=== PATIENT | female | born 1995 | race African-American/Black ===

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

== ENCOUNTER 2018-07-11 11:59 | Emergency (ER) | payer SELFPAY ==
[2018-07-11 12:45] VITALS: BP 131/85
[2018-07-11] MEDS ORDERED: Ketorolac INJ* 30 MG/ML 1 ML VIAL IM ONE (13:52)
--- NOTE | 2018-07-11 13:53 | ED ---
Throat Pain/Nasal Congestion - HPI Summary HPI Summary: 23 year old female presents with dental pain past week. She states that her pain is getting worse. She states she is not able to function due to the pain. She denies any fevers. She states that her gums have been feeling swollen. She states the pain is in her bilateral lower wisdom teeth. She states she gets very sharp pain whenever exposed to temperature. She states the pain radiates up her jaw. - History of Current Complaint Chief Complaint: UCDentalProblem Time Seen by Provider: 07/11/18 13:42 - Allergies/Home Medications Allergies/Adverse Reactions: Allergies Allergy/AdvReac Type Severity Reaction Status Date / Time MS Penicillins [PCN] Allergy Severe Unknown Verified 12/18/16 08:04 Reaction Details Penicillins Allergy anaph Verified 07/11/18 12:46 PMH/Surg Hx/FS Hx/Imm Hx Endocrine/Hematology History: Denies: Hx Diabetes Cardiovascular History: Denies: Hx Hypertension Respiratory History: Reports: Hx Asthma Sensory History: Denies: Hx Legally Blind, Hx Deafness Opthamlomology History: Denies: Hx Legally Blind - Surgical History Surgery Procedure, Year, and Place: n/a Infectious Disease History: No Infectious Disease History: Denies: Traveled Outside the [place] in Last 30 Days - Family History Known Family History: Positive: Cardiac Disease, Hypertension, Diabetes, Other - Cancer - Social History Alcohol Use: None Substance Use Type: Reports: None Substance Use Comment - Amount & Last Used: 3-4 times a week Smoking Status (MU): Light Every Day Tobacco Smoker Review of Systems Negative: Fever Positive: Dental Pain Negative: Chest Pain Negative: Shortness Of Breath All Other Systems Reviewed And Are Negative: Yes Physical Exam Triage Information Reviewed: Yes Vital Signs On Initial Exam: Initial Vitals Temp Pulse Resp BP Pulse Ox 97.8 F 85 18 131/85 100 07/11/18 12:42 07/11/18 12:42 07/11/18 12:42 07/11/18 12:42 07/11/18 12:42 Vital Signs Reviewed: Yes Appearance: Positive: Pain Distress Skin: Positive: Warm, Dry Head/Face: Positive: Normal Head/Face Inspection Eyes: Positive: Normal, EOMI, HUGO, Conjunctiva Clear ENT: Positive: Pharynx normal, TMs normal Dental: Positive: Percussion Tenderness @ - 32, Gross Decay/Caries @ - 32 Neck: Positive: Supple, Nontender, No Lymphadenopathy Respiratory/Lung Sounds: Positive: Clear to Auscultation, Breath Sounds Present Cardiovascular: Positive: Normal, RRR Musculoskeletal: Positive: Normal Neurological: Positive: Normal Psychiatric: Positive: Normal Diagnostics - Vital Signs Vital Signs Temp Pulse Resp BP Pulse Ox 07/11/18 12:42 97.8 F 85 18 131/85 100 - Laboratory Lab Statement: Any lab studies that have been ordered have been reviewed, and results considered in the medical decision making process. EENT Course/Dx - Course Course Of Treatment: 23 year old female presents with dental pain past week. She states that her pain is getting worse. She states she is not able to function due to the pain. She denies any fevers. She states that her gums have been feeling swollen. She states the pain is in her bilateral lower wisdom teeth. She states she gets very sharp pain whenever exposed to temperature. She states the pain radiates up her jaw. On exam of pain into 31 and 17. Some erythema around. We'll treat with clindamycin. gave tramadol for extreme pain. Told to Establish care with dentist. can follow up with primary about blood pressure but likely due to pain Patient understands agrees with plan. - Differential Diagnoses Differential Diagnoses: Dental Abscess, Dental Caries, Fractured Tooth - Diagnoses Provider Diagnoses: Dental infection Discharge - Sign-Out/Discharge Documenting (check all that apply): Patient Departure All imaging exams completed and their final reports reviewed: No Studies - Discharge Plan Condition: Good Disposition: HOME Prescriptions: Clindamycin Cap(NF) [Clindamycin Cap 300 mg Cap(NF)] 300 mg PO TID #21 cap traMADol TAB* [Ultram*] 50 mg PO Q12H PRN #6 tab MDD 2 PRN Reason: Pain Patient Education Materials: Toothache (ED) Referrals: Estefanía Peterson MD [Primary Care Provider] - Additional Instructions: Take clindamycin three times a day for 7 days Take ibuprofen or tyenlol every 6 hours for pain as needed, use tramadol every 12 hours as needed for break through pain Avoid hard, crunchy food until seen by dentist Return to ED if develop fever, shortness of breath, pain with eye movement or swelling around eye Establish care with dentist as soon as possible - Billing Disposition and Condition Condition: GOOD Disposition: Home Images - Images Dental: 1 - pain
== END 2018-07-11 14:04 | disposition home or self-care (01) ==
LOC: UCEAST 11:59
DX: K04.7 Periapical abscess without sinus (principal); K02.9 Dental caries, unspecified; J45.909 Unspecified asthma, uncomplicated; Z88.0 Allergy status to penicillin; F17.200 Nicotine dependence, unspecified, uncomplicated
CPT/HCPCS: 96372; 99212; G0463; J1885

== ENCOUNTER 2018-08-12 21:00 | Emergency (ER) | payer MEDICAID ==
[2018-08-12 21:13] VITALS: BP 129/74
--- NOTE | 2018-08-12 21:59 | UC ---
UC General HPI - HPI Summary HPI Summary: 23-year-old woman comes in with a chief complaint of chest pain. Last evening just before going to bed she took a dose of clindamycin for a dental infection that she has. She laid down right away fell asleep. When she woke up she had lower chest pain that is burning in nature. When she first started trying to drink it gave her quite a bit of pain this morning. Since that time she's been able to eat and drink but it does cause more pain when she does do that. No vomiting. She is slightly tender if she pushes on her upper abdomen also. No fevers or chills no shortness of breath. - History of Current Complaint Chief Complaint: UCGI Stated Complaint: THROAT COMPLAINT Time Seen by Provider: 08/12/18 21:37 Hx Last Menstrual Period: 08/05/18 Pain Intensity: 3 - Allergy/Home Medications Allergies/Adverse Reactions: Allergies Allergy/AdvReac Type Severity Reaction Status Date / Time Penicillins Allergy anaph Verified 08/12/18 21:13 PMH/Surg Hx/FS Hx/Imm Hx Previously Healthy: Yes - Surgical History Surgical History: None Surgery Procedure, Year, and Place: n/a - Family History Known Family History: Positive: Cardiac Disease, Hypertension, Diabetes, Other - Cancer - Social History Alcohol Use: Occasionally Substance Use Type: Marijuana Substance Use Comment - Amount & Last Used: 3-4 times a week Smoking Status (MU): Former Smoker Review of Systems All Other Systems Reviewed And Are Negative: Yes Constitutional: Positive: Negative Skin: Positive: Negative Eyes: Positive: Negative ENT: Positive: Negative Respiratory: Positive: Negative Cardiovascular: Positive: Chest Pain Gastrointestinal: Positive: Abdominal Pain Motor: Positive: Negative Neurovascular: Positive: Negative Musculoskeletal: Positive: Negative Neurological: Positive: Negative Psychological: Positive: Negative Is Patient Immunocompromised?: No Physical Exam Triage Information Reviewed: Yes Appearance: Well-Appearing, No Pain Distress, Well-Nourished Vital Signs: Initial Vital Signs Temp 99.2 F 08/12/18 21:08 Pulse 69 08/12/18 21:08 Resp 18 08/12/18 21:08 BP 129/74 08/12/18 21:08 Pulse Ox 100 08/12/18 21:08 Vital Signs Reviewed: Yes Eye Exam: Normal Eyes: Positive: Conjunctiva Clear Neck: Positive: Supple Respiratory: Positive: Lungs clear, Normal breath sounds, No respiratory distress Cardiovascular: Positive: RRR Abdomen Description: Positive: Soft, Other: - MILD EPIGASTRIC TENDERNESS TO PALPATION Bowel Sounds: Positive: Present Musculoskeletal Exam: Normal Musculoskeletal: Positive: Strength Intact, ROM Intact Neurological Exam: Normal Neurological: Positive: Alert, Muscle Tone Normal Psychological Exam: Normal Psychological: Positive: Age Appropriate Behavior Skin Exam: Normal Course/Dx - Course Course Of Treatment: Hx and exam consistent with esophagitis from the clindamycin. Pt no SOB, no fever. Has been able to eat and drink. Trt with OTC antacids and RX omeprazole. If worse go to ED. F/U [facility] otherwise. - Diagnoses Provider Diagnosis: Esophagitis Discharge - Sign-Out/Discharge Documenting (check all that apply): Patient Departure All imaging exams completed and their final reports reviewed: No Studies - Discharge Plan Condition: Stable Disposition: HOME Prescriptions: Omeprazole 20 mg PO BID #30 capsule. Patient Education Materials: Esophagitis (ED) Referrals: [facility] [Outside] Additional Instructions: FOLLOW UP WITH [facility] IF NOT COMPLETELY IMPROVED. TAKE TUMS AND MAALOX DIRECTED NEEDED IF HELPFUL. GO TO THE EMERGENCY DEPARTMENT IF YOUR CONDITION WORSENS; PAIN, SHORTNESS OF BREATH, YOU ARE UNABLE TO SWALLOW OR ANY QUESTIONS OR CONCERNS. - Billing Disposition and Condition Condition: STABLE Disposition: Home
[2018-08-12] MEDS: Pantoprazole TAB * 40 MG TAB PO ONE (22:07)
[2018-08-12] MEDS: Al Hydrox/Mg Hydrox/Simet LIQ* 30 ML UDC PO ONE (22:07)
== END 2018-08-12 22:11 | disposition home or self-care (01) ==
LOC: UCEAST 21:00
DX: K20.9 Esophagitis, unspecified (principal); Z88.0 Allergy status to penicillin; Z79.891 Long term (current) use of opiate analgesic
CPT/HCPCS: 99212; A9270-GY; G0463

== ENCOUNTER 2019-04-11 01:21 | Emergency (ER) | payer MEDICAID ==
[2019-04-11 01:25] VITALS: BP 144/78
[2019-04-11] MEDS ORDERED: Bupivacaine 0.5% W/EPI SDV* 10 ML VIAL INJ ONE ×2 (02:30)
[2019-04-11] MEDS ORDERED: Clindamycin CAP* 150 MG PO ONE (02:34)
--- NOTE | 2019-04-11 03:39 | ED ---
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 She notes that the pain severely worsened in the past two days. She also mentions that she has not had her wisdom teeth removed. The pt rates her current pain severity a 10/10. No aggravating or alleviating factors noted. She also denies any fever. - History Of Current Complaint Chief Complaint: EDDentalPain Time Seen by Provider: 04/11/19 02:33 Hx Obtained From: Patient Onset/Duration: Sudden Onset, Lasting Days, Lasting Weeks, Still Present Timing: Constant, Hours, Weeks Severity Currently: Severe Severity Initially: Severe Location: Pain At: - right lower third molar Aggravating Factor(s): nothing Alleviating Factor(s): nothing Associated Signs And Symptoms: Positive: Other - pos - dental pain. Negative: Fever - Allergies/Home Medications Allergies/Adverse Reactions: Allergies Allergy/AdvReac Type Severity Reaction Status Date / Time Penicillins Allergy anaph Verified 08/12/18 21:13 PMH/Surg Hx/FS Hx/Imm Hx Endocrine/Hematology History: Denies: Hx Diabetes, Hx Thyroid Disease Cardiovascular History: Denies: Hx Hypertension Respiratory History: Denies: Hx Asthma, Hx Chronic Obstructive Pulmonary Disease (COPD) GI History: Denies: Hx Ulcer Sensory History: Denies: Hx Legally Blind, Hx Deafness Opthamlomology History: Denies: Hx Legally Blind - Surgical History Surgical History: None Surgery Procedure, Year, and Place: none Infectious Disease History: No Infectious Disease History: Denies: Hx Hepatitis, Hx Human Immunodeficiency Virus (HIV), Traveled Outside the [place] in Last 30 Days - Family History Known Family History: Positive: Cardiac Disease, Hypertension, Diabetes, Other - Cancer - Social History Alcohol Use: Occasionally Substance Use Type: Reports: Marijuana Substance Use Comment - Amount & Last Used: 3-4 times a week Smoking Status (MU): Former Smoker Review of Systems Negative: Fever Positive: Dental Pain All Other Systems Reviewed And Are Negative: Yes Physical Exam - Summary Physical Exam Summary: Appearance: Well-appearing, Well-nourished, lying in bed comfortably Skin: Warm, dry, no obvious rash Eyes: sclera anicteric, no conjunctival pallor ENT: mucous membranes moist, pharynx appears normal, Right lower third molar is carious Neck: Supple, nontender Respiratory: Clear to auscultation, no signs of respiratory distress Cardiovascular: Normal S1, S2. No murmurs. Normal distal pulses in tibial and radial bilaterally. Abdomen: Soft, nontender, normal active bowel sounds present Musculoskeletal: Normal, Strength/ROM Intact Neurological: A&Ox3, awake and alert, mentation is normal, speech is fluent and appropriate Psychiatric: affect is normal, does not appear anxious or depressed Triage Information Reviewed: Yes Vital Signs On Initial Exam: Initial Vitals Temp Pulse Resp BP Pulse Ox 98.6 F 80 22 144/78 98 04/11/19 01:22 04/11/19 01:22 04/11/19 01:22 04/11/19 01:22 04/11/19 01:22 Vital Signs Reviewed: Yes Procedures - Sedation Patient Received Moderate/Deep Sedation with Procedure: No Diagnostics - Vital Signs Vital Signs Temp Pulse Resp BP Pulse Ox 04/11/19 02:49 98.3 F 80 22 144/78 98 04/11/19 01:22 98.6 F 80 22 144/78 98 - Laboratory Lab Statement: Any lab studies that have been ordered have been reviewed, and results considered in the medical decision making process. Re-Evaluation - Re-Evaluation First Eval Re-Evaluation Time: 02:51 Comment: Pt was given a dental block with 0.5% lidocaine. Complex Multi-Symp Course/Dx Course Of Treatment: The pt is a 23 yr old female presenting to [facility] c/o right lower dental pain beginning 2 weeks SPEECH THERAPIST. She notes that the pain severely worsened in the past two days. She also mentions that she has not had her wisdom teeth removed. Final dx is dental abscess. Pt will be discharged home with dentist and PCP follow up. Pt is agreeable with this plan. - Diagnoses Provider Diagnoses: Dental abscess Discharge ED - Sign-Out/Discharge Documenting (check all that apply): Patient Departure - discharge - Discharge Plan Condition: Good Disposition: HOME Prescriptions: Clindamycin HCl 300 mg PO TID #30 capsule HYDROcodone/ACETAMIN 5-325 MG* [[place] 5-325 TAB*] 2 tab PO Q4H PRN #10 tab MDD 4 PRN Reason: Pain - Severe Patient Education Materials: Dental Abscess (ED) Forms: *Work Release Referrals: Estefanía Peterson MD [Primary Care Provider] - Additional Instructions: The anesthetic and antibiotic should temporize things over the weekend until you can get in to your dentist. - Billing Disposition and Condition Condition: GOOD Disposition: Home - Attestation Statements Document Initiated by John: Yes Documenting Scribe: Jaspreet Smith Provider For Whom John is Documenting (Include Credential): Wally Nguyen MD Scribe Attestation: I, Jaspreet Smith, scribed for Wally Nguyen MD on 04/11/19 at 0527. Scribe Documentation Reviewed: Yes Provider Attestation: The documentation as recorded by the Jaspreet kinsey accurately reflects the service I personally performed and the decisions made by me, Wally Nguyen MD Status of Scribe Document: Viewed
== END 2019-04-11 02:49 | disposition home or self-care (01) ==
LOC: ED 01:21
DX: K04.7 Periapical abscess without sinus (principal); Z87.891 Personal history of nicotine dependence; Z88.0 Allergy status to penicillin
CPT/HCPCS: 99282; A9270-GY

== ENCOUNTER 2023-02-21 01:00 | Inpatient (IN) ==
[2023-02-21 04:09] LABS: Urine Benzodiazepine Screen None Detected (None Detect); Urine Cannabinoids Screen Presumptive Positive (None Detect); Urine Opiates Screen None Detected (None Detect)
[2023-02-21] MEDS ORDERED: Promethazine INJ(RESTRICTED) 25 MG/ML 1 ml VIAL IV PRN (04:56)
[2023-02-21] MEDS ORDERED: Lactated Ringers 1000 ml BAG 1,000 ML IV ONE ×2 (04:56→07:19)
[2023-02-21] MEDS ORDERED: Buffered Lidocaine 1% SYRIN 1 ml INTRADERM ONE (04:56)
[2023-02-21] MEDS ORDERED: Lidocaine 1% VIAL 10 MG/ML 30 ML VIAL INJ PRN (04:56)
[2023-02-21] MEDS ORDERED: Lactated Ringers 1000 ml BAG 1,000 ML IV SCH ×3 (05:00→16:00)
[2023-02-21 05:53] LABS: ABS Basophils 0.1 10^3/uL (0.0-0.1); ABS Eosinophils 0.1 10^3/uL (0.0-0.5); ABS Monocytes 0.8 10^3/uL (0.0-0.9); ABS Neutrophils 9.8 10^3/uL (1.5-7.6); Eosinophil % 0.5 %; Hemoglobin 10.8 g/dL (11.5-14.3); Mean Corpuscular Hemoglobin 27.5 pg (27-33); Mean Corpuscular Hgb Conc 33.8 g/dL (31-36); Mean Corpuscular Volume 81.2 fL (80-97); Mean Platelet Volume 8.4 fL (7.5-11.2); Platelet Count 237 10^3/uL (150-450); Red Blood Count 3.94 10^6/uL (3.63-4.92); Red Cell Distribution Width 14.9 % (12-17); White Blood Count 12.7 10^3/uL (3.8-11.8)
[2023-02-21] MEDS ORDERED: Lidocaine 1.5% EPI 1:200,000 30 ML SDV ONE (06:33)
[2023-02-21] MEDS ORDERED: OBEPIDURAL (200 ML) 200 ML EPIDURAL ONE (06:33)
[2023-02-21] MEDS: Phenylephrine 40 mcg/mL 10mL (400mcg) SYRINGE IV PUSH PRN ×2 (07:10→07:14)
[2023-02-21] MEDS ORDERED: Sodium Citrate/Citric Acid LIQ 15 ML UDC PO PRN (07:19)
[2023-02-21] MEDS ORDERED: Lactated Ringers 1000 ml BAG 500 ML IV PRN ×2 (07:19)
[2023-02-21] MEDS ORDERED: Phenylephrine 40 mcg/mL 10mL (400mcg) SYRINGE IV PUSH PRN (07:19)
[2023-02-21] MEDS ORDERED: OBEPIDURAL (200 ML) 200 ML EPIDURAL SCH (08:00)
[2023-02-21 08:12] LABS: Urine Benzodiazepine Screen None Detected (None Detect); Urine Cannabinoids Screen Presumptive Positive (None Detect); Urine Opiates Screen None Detected (None Detect)
[2023-02-21 08:49] LABS: Urine Appearance Clear; Urine Bilirubin Negative (Negative); Urine Blood Negative (Negative); Urine Color Straw; Urine Glucose Negative (Negative); Urine Ketones 1+ (15mg/dL) (Negative); Urine Nitrite Negative (Negative); Urine Protein Negative (Negative); Urine Specific Gravity 1.015 (1.005-1.030); Urine Urobilinogen 0.2 (Negative) (Negative)
[2023-02-21] MEDS ORDERED: Oxytocin in LR 20,000 MILLI.UNIT/1,000 ML BAG IV SCH ×2 (10:35→15:35)
[2023-02-21] MEDS ORDERED: Glycerin ADULT 2.4 gm SUPP PR PRN (15:35)
[2023-02-21] MEDS: Witch Hazel PAD JAR TOPICAL PRN (16:45)
[2023-02-21] MEDS: Dibucaine 1% OINT 28.35 GM TUBE PR PRN (16:45)
[2023-02-22 07:47] LABS: ABS Eosinophils 0.1 10^3/uL (0.0-0.5); ABS Lymphocytes 2.5 10^3/uL (1.0-4.8); ABS Monocytes 1.2 10^3/uL (0.0-0.9); ABS Neutrophils 12.3 10^3/uL (1.5-7.6); Eosinophil % 0.4 %; Hematocrit 27.4 % (35-45); Hemoglobin 9.3 g/dL (11.5-14.3); Lymphocyte % 15.5 %; Mean Corpuscular Hemoglobin 27.7 pg (27-33); Mean Corpuscular Volume 81.4 fL (80-97); Mean Platelet Volume 8.5 fL (7.5-11.2); Platelet Count 200 10^3/uL (150-450); Red Blood Count 3.36 10^6/uL (3.63-4.92); Red Cell Distribution Width 14.7 % (12-17); White Blood Count 16.1 10^3/uL (3.8-11.8)
[2023-02-23] MEDS: Witch Hazel PAD JAR TOPICAL PRN (11:10)
[2023-02-23] MEDS: Dibucaine 1% OINT 28.35 GM TUBE PR PRN (14:22)
[2023-02-23 16:36] VITALS: BP 148/68
== END 2023-02-23 16:19 | disposition home or self-care (01) | DRG 560 ==
LOC: MCHOBOUT 01:00 → MCHOB 01:51
PROVIDERS: ADMIT Obstetrics & Gynecology; ATTEND Obstetrics & Gynecology